=== PATIENT | female | born 1970 | race Caucasian/White ===

== ENCOUNTER 2019-05-01 11:38 | Emergency (ER) | payer MEDICARE ==
[2019-05-01 11:58] VITALS: TEMP 97.8
[2019-05-01] MEDS ORDERED: IBUPROFEN 600 MG TAB PO STA (12:56)
--- NOTE | 2019-05-01 13:20 | XR ---
EXAMINATION TYPE: XR femur LT , 4 VIEWS DATE OF EXAM ORDERED: 05/01/2019 HISTORY: fall, pain. COMPARISON: None. FINDINGS: No long bone fracture is seen. No knee joint effusion is seen. Hip joint appears well main tained. IMPRESSION: NO ACUTE OSSEOUS LESION.
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
[2019-05-01 14:10] VITALS: BP 126/87; PULSE 89; RESP 16
== END 2019-05-01 14:08 | disposition home or self-care (01) ==
LOC: EC 11:38
DX: S80.12XA Contusion of left lower leg, initial encounter (principal); I10 Essential (primary) hypertension; F17.200 Nicotine dependence, unspecified, uncomplicated; Z88.0 Allergy status to penicillin; W00.0XXA Fall on same level due to ice and snow, initial encounter; Y93.K1 Activity, walking an animal
CPT/HCPCS: 99283